=== PATIENT | female | born 1930 | race Caucasian/White ===

== ENCOUNTER 2017-11-19 12:30 | Outpatient (CLI) | payer MEDICARE, OTHER ==
--- NOTE | 2017-11-20 10:01 | Diagnostic Imaging Report ---
MANUEL PEARSON [facility] [address] [facility].[address] [id number] Report Submission Date: November 19, 2017 1:34:13 PM CDT Patient Study Name: MELANIE NOE Date: November 19, 2017 12:36:30 PM CDT Modality Type: DX Gender: F Description: ABDOMEN : 34 Institution: [facility] Physician: MANUEL PEARSON Examination: Abdomen History: KUB, CONSTIPATION, ABD DISCOMFORT X2 WEEKS, PT STATES HX OF COLON CANCER AND SURGERY TO REMOVE SOME OF HER COLON (Hx) Findings: 2 views obtained of the abdomen. No abnormal dilation of the large or small bowel. Air and stool throughout the large bowel. No suspicious calcification projecting over the renal fossa or the lower pelvic region. lumbar curvature to the left. Impression: Moderate large bowel stool - constipation. No obstruction. Electronically signed on November 19, 2017 1:34:13 PM CDT by: Andrea WHYTE
== END 2017-11-19 14:18 ==
LOC: RAD 12:30
PROVIDERS: ATTEND Family Medicine
DX: R10.9 Unspecified abdominal pain (principal); K59.00 Constipation, unspecified
CPT/HCPCS: 74018

== ENCOUNTER 2018-11-10 11:07 | Outpatient (CLI) | payer MEDICARE, OTHER ==
--- NOTE | 2018-11-10 14:32 | Diagnostic Imaging Report ---
MANUEL PEARSON [facility] [address] [id number] Report Submission Date: November 10, 2018 1:57:37 PM CDT Patient Study Name: MELANIE NOE Date: November 10, 2018 11:16:58 AM CDT Modality Type: DX Gender: F Description: FOOT 3 VIEWS OR MORE : 34 Institution: [facility] Physician: MANUEL PEARSON Examination: Plain film left foot History: Hit foot on stool in kitchen when reaching for a glass of water Findings: 3 views of the left foot demonstrates osteopenia. Articular degenerative changes. No fracture or dislocation. Calcaneal spurs. No soft tissue swelling. No joint effusion. Impression: Osteopenia and degenerative changes. No acute appearing cortical abnormality. Electronically signed on November 10, 2018 1:57:37 PM CDT by: Andrea WHYTE
== END 2018-11-10 11:09 ==
LOC: RAD 11:07
PROVIDERS: ATTEND Family Medicine
DX: M85.872 Other specified disorders of bone density and structure, left ankle and foot (principal); M24.175 Other articular cartilage disorders, left foot; S99.922A Unspecified injury of left foot, initial encounter
CPT/HCPCS: 73630